=== PATIENT | male | born 1955 | race Caucasian/White ===

== ENCOUNTER 2021-04-29 15:58 | Emergency (ER) | payer OTHER ==
[2021-04-29 16:07] VITALS: TEMP 98
[2021-04-29] MEDS ORDERED: SODIUM CHLORIDE 0.9% 1,000 ML IV ONE (16:49)
[2021-04-29] MEDS ORDERED: KETOROLAC 15 MG/ML 1 ML VIAL IVP STA (16:49)
[2021-04-29] MEDS ORDERED: HYDROmorphone 1 MG/ML 1 ML SYRINGE IVP STA (16:49)
[2021-04-29] MEDS ORDERED: ONDANSETRON 4 MG/2 ML VIAL IVP STA (16:49)
[2021-04-29 17:17] LABS: Basophils # (A) 0.1 k/uL (0-0.2); Basophils % (A) 1 %; Eosinophils # (A) 0.3 k/uL (0-0.7); Eosinophils % (A) 3 %; HCT 44.5 % (39.0-53.0); HGB 15.3 gm/dL (13.0-17.5); Lymphocytes # (A) 1.4 k/uL (1.0-4.8); Lymphocytes % (A) 14 %; MCH 28.5 pg (25.0-35.0); MCHC 34.4 g/dL (31.0-37.0); MCV 83.1 fL (80.0-100.0); Mean Platelet Volume 7.6; Monocytes # (A) 0.6 k/uL (0-1.0); Monocytes % (A) 7 %; Neutrophils # (A) 7.2 k/uL (1.3-7.7); Neutrophils % (A) 74 %; Platelet Count 230 k/uL (150-450); RBC 5.35 m/uL (4.30-5.90); RDW 13.8 % (11.5-15.5); WBC 9.6 k/uL (3.8-10.6)
--- NOTE | 2021-04-29 17:32 | CT ---
EXAMINATION TYPE: CT abdomen pelvis wo con DATE OF EXAM: 04/29/2021 COMPARISON: None available HISTORY: left flank pain, hx kidney stone CT DLP: 666.8 mGycm. Automated Exposure Control for Dose Reduction was Utilized. TECHNIQUE: Multiple contiguous axial CT images of the performed from the lung bases through the pubic symphysis without the administration of intravenous contrast. 2-D sagittal and coronal reformatted i mages were obtained. FINDINGS: Dependent atelectasis otherwise the lung bases are clear. Liver, spleen, pancreas, and bilateral adrenal glands have an unremarkable unenhanced appearance. Gallbladder is absent. No definite intrahepatic or extrahepatic biliary ductal dilatation. Kidneys are symmetric in size. Mild left-sided hydroureteronephrosis with proximal left ureteral calc ulus measuring 5 mm. Mild left periureteral fat stranding proximally. Nonobstructing renal calculi bi laterally measuring up to 15 mm on the left and 8 mm on the right. Urinary bladder appears unremarkab le. Prostate is mildly enlarged. No free fluid. Visualized bowel is of normal caliber without evidence of obstruction. No significant mesenteric infl ammation. Scattered distal colonic diverticula without adjacent inflammatory changes. Appendix appear s unremarkable. No free air. Abdominal aorta is of normal caliber. No intra-abdominal or retroperitoneal lymphadenopathy. Subcutan eous soft tissues appear unremarkable. Small fat-containing umbilical hernia. Moderate multilevel deg enerative changes of the visualized thoracolumbar spine. Osseous structures appear intact. IMPRESSION: 1. 5 mm proximal left ureteral calculus with mild upstream hydroureteronephrosis and mild adjacent in flammatory changes. 2. Nephrolithiasis bilaterally. 3. Colonic diverticulosis.
[2021-04-29 17:34] LABS: Albumin 4.4 g/dL (3.5-5.0); Calcium 9.9 mg/dL (8.4-10.2); Potassium 4.2 mmol/L (3.5-5.1); Total Bilirubin 0.7 mg/dL (0.2-1.3); Total Protein 7.1 g/dL (6.3-8.2)
[2021-04-29 18:28] LABS: Appearance,Urine Clear (Clear); Bacteria,Urine Rare /hpf; Bilirubin,Urine Negative (Negative); Blood,Urine Moderate (Negative); Calcium Oxalate Crystals,Urine Occasional /hpf; Color,Urine Yellow; Glucose,Urine (UA) Negative (Negative); Ketones,Urine Negative (Negative); Leukocyte Esterase,Urine Trace (Negative); Mucus,Urine Rare /hpf; Nitrite,Urine Negative (Negative); PH, Urine 5.5 (5.0-8.0); Protein,Urine Trace (Negative); RBC,Urine 94 /hpf (0-5); Specific Gravity,Urine 1.021 (1.001-1.035); Urobilinogen,Urine <2.0 mg/dL (<2.0); WBC,Urine 3 /hpf (0-5)
--- NOTE | 2021-04-29 18:40 | ED ---
General Adult HPI - General Chief complaint: Back Pain/Injury Stated complaint: side pain Source: patient Mode of arrival: ambulatory Limitations: no limitations - History of Present Illness Initial comments: The patient is a 65-year-old male past medical history of renal stones who presents to the emergency department with reported left flank pain. He reports that he was working in the backyard when he had sudden onset of left flank pain 2 hours ago. He denies any inciting trauma. Pain felt similar to when he had a kidney stone. States that he has not passed one in over 20 years. He denies dysuria, hematuria or difficulty voiding. No changes in his bowel habits. No saddle anesthesia. No urinary retention or incontinence. No fevers or chills. He denies any numbness, tingling or weakness into his legs. Took some Motrin without any relief. No other alleviating, precipitating modifying factors - Related Data Home Medications Medication Instructions Recorded Confirmed Tamsulosin HCl [Flomax] 0.4 mg PO DAILY 04/29/21 04/29/21 Previous Rx's Medication Instructions Recorded HYDROcodone/APAP 7.5-325MG [[place] 1 tab PO Q6HR PRN 3 Days #12 tab 04/29/21 7.5-325] Ketorolac [Toradol] 10 mg PO TID #15 tab 04/29/21 Ondansetron Odt [Zofran Odt] 4 mg PO Q8HR PRN #10 tab 04/29/21 Allergies Allergy/AdvReac Type Severity Reaction Status Date / Time codeine Allergy Nausea & Verified 04/29/21 18:19 Vomiting Review of Systems ROS Statement: Those systems with pertinent positive or pertinent negative responses have been documented in the HPI. ROS Other: All systems not noted in ROS Statement are negative. Past Medical History Additional Past Medical History / Comment(s): slight hiatal hernia, kidney stones History of Any Multi-Drug Resistant Organisms: None Reported Past Surgical History: Cholecystectomy, Joint Replacement, Tonsillectomy Additional Past Surgical History / Comment(s): rt knee replacement Past Anesthesia/Blood Transfusion Reactions: No Reported Reaction Past Psychological History: No Psychological Hx Reported Smoking Status: Never smoker Past Alcohol Use History: Occasional Past Drug Use History: None Reported - Past Family History Mother Family Medical History: Cancer General Exam Limitations: no limitations Course Vital Signs 04/29/21 04/29/21 16:06 18:56 Temperature 98.0 F Pulse Rate 71 74 Respiratory 18 16 Rate Blood Pressure 155/90 146/79 O2 Sat by Pulse 98 98 Oximetry Medical Decision Making - Medical Decision Making On arrival patient was placed into room 25. A thorough history and physical was performed. IV is established the patient is given 15 mg of Toradol and 1 mg of Dilaudid. Laboratory studies are conducted and patient provided urine sample. He does go over for CT of his abdomen and pelvis. Laboratory studies demonstrate trace leukocyte esterase, 94 red blood cells, occasional calcium oxalate crystals, rare bacteria. CT of the abdomen and pelvis demonstrates a 5 mm proximal left ureteral calculus with mild upstream hydronephrosis and hydroureter. The patient is reevaluated and has had complete resolution his pain. I did discuss diagnosis, differential and treatment options. Patient will be discharged home with prescription for [place] and Toradol. I also provided the patient prescription for Zofran. He is on Flomax for enlarged prostate. Instructed to take this medication daily. Encourage fluid intake. He is given follow-up information for the urologist on-call. Instructed to call on Saturday make an appointment. If he has any worsening symptoms return to the emergency department. Patient was in agreement with this treatment and was dis charged home in stable condition - Lab Data Result diagrams: 04/29/21 17:07 04/29/21 17:07 Lab Results 04/29/21 04/29/21 04/29/21 Range/Units 17:07 17:07 17:07 WBC 9.6 (3.8-10.6) k/uL RBC 5.35 (4.30-5.90) m/uL Hgb 15.3 (13.0-17.5) gm/dL Hct 44.5 (39.0-53.0) % MCV 83.1 (80.0-100.0) fL MCH 28.5 (25.0-35.0) pg MCHC 34.4 (31.0-37.0) g/dL RDW 13.8 (11.5-15.5) % Plt Count 230 (150-450) k/uL MPV 7.6 Neutrophils % 74 % Lymphocytes % 14 % Monocytes % 7 % Eosinophils % 3 % Basophils % 1 % Neutrophils # 7.2 (1.3-7.7) k/uL Lymphocytes # 1.4 (1.0-4.8) k/uL Monocytes # 0.6 (0-1.0) k/uL Eosinophils # 0.3 (0-0.7) k/uL Basophils # 0.1 (0-0.2) k/uL Sodium 135 L (137-145) mmol/L Potassium 4.2 (3.5-5.1) mmol/L Chloride 104 (98-107) mmol/L Carbon Dioxide 23 (22-30) mmol/L Anion Gap 8 mmol/L BUN 18 (9-20) mg/dL Creatinine 1.18 (0.66-1.25) mg/dL Est GFR (CKD-EPI)AfAm 76 (>60 ml/min/1.73 sqM) Est GFR (CKD-EPI)NonAf 65 (>60 ml/min/1.73 sqM) Glucose 147 H (74-99) mg/dL Calcium 9.9 (8.4-10.2) mg/dL Total Bilirubin 0.7 (0.2-1.3) mg/dL AST 30 (17-59) U/L ALT 29 (4-49) U/L Alkaline Phosphatase 57 (38-126) U/L Total Protein 7.1 (6.3-8.2) g/dL Albumin 4.4 (3.5-5.0) g/dL Lipase 98 (23-300) U/L Urine Color Yellow Urine Appearance Clear (Clear) Urine pH 5.5 (5.0-8.0) Ur Specific [place] 1.021 (1.001-1.035) Urine Protein Trace H (Negative) Urine Glucose (UA) Negative (Negative) Urine Ketones Negative (Negative) Urine Blood Moderate H (Negative) Urine Nitrite Negative (Negative) Urine Bilirubin Negative (Negative) Urine Urobilinogen <2.0 (<2.0) mg/dL Ur Leukocyte Esterase Trace H (Negative) Urine RBC 94 H (0-5) /hpf Urine WBC 3 (0-5) /hpf Calcium Oxalate [place] Occasional H (None) /hpf Urine Bacteria Rare H (None) /hpf Urine Mucus Rare H (None) /hpf Disposition Clinical Impression: Ureteral stone, Hydronephrosis Disposition: HOME SELF-CARE Condition: Stable Instructions (If sedation given, give patient instructions): Kidney Stones (ED) Additional Instructions: Alternate taking the [place] and Toradol for pain control. Take your Flomax as directed. Strain all urine. Return to the emergency room for any new or worsening symptoms include inability to urinate, uncontrolled pain and fever. Follow up with the urologist for further management of your kidney stones. Prescriptions: HYDROcodone/APAP 7.5-325MG [[place] 7.5-325] 1 tab PO Q6HR PRN 3 Days #12 tab PRN Reason: Pain Ketorolac [Toradol] 10 mg PO TID #15 tab Ondansetron Odt [Zofran Odt] 4 mg PO Q8HR PRN #10 tab PRN Reason: Nausea Is patient prescribed a controlled substance at d/c from ED?: Yes When asked, does pt state using other controlled substances?: No If prescribed controlled substance>3 days was MAPS reviewed?: Prescribed <3 Days If opioid is for acute pain is fill amount 7 days or less?: Yes If Rx opioid, was Start Talking consent form obtained?: Yes Referrals: Jesus Romo III, MD [Primary Care Provider] - 1-2 days Chavez Marc MD [STAFF PHYSICIAN] - 1-2 days Time of Disposition: 18:35
[2021-04-29 18:58] VITALS: BP 146/79; PULSE 74; RESP 16
== END 2021-04-29 18:57 | disposition home or self-care (01) ==
LOC: EC 15:58
DX: N13.2 Hydronephrosis with renal and ureteral calculous obstruction (principal); Z88.5 Allergy status to narcotic agent
CPT/HCPCS: 36415; 80053; 83690; 85025; 81001; 74176; 96374; 96375 ×2; 96361 ×2; 99284; J2405; J1170; J1885

== ENCOUNTER 2021-05-25 07:24 | Day surgery (SDC) | payer OTHER ==
[2021-05-24 08:26] VITALS: BMI 25.8
[~2021-05-25 07:24] MED LIST: DEXAMETHASONE SOD PHOSPHATE 4 MG/ML 1 ML VIAL IV ONE; LACTATED RINGERS 1,000 ML IV SCH; ONDANSETRON 4 MG/2 ML VIAL IVP ONE; fentaNYL (PF) 50 MCG/ML 2 ML AMP IV PRN
--- NOTE | 2021-05-25 07:41 | XR ---
EXAMINATION TYPE: XR KUB DATE OF EXAM: 05/25/2021 Comparison: CT 04/29/2021 Clinical History: 65-year-old male preoperative left-sided kidney stone. Findings: 6 mm right renal calculus. A more right paramedian mid abdominal calcification measuring 5 mm could r epresent summation artifact with the L3 transverse process. Correlate for any new right-sided symptom s. Clustered calculi lower pole left kidney measuring up to 1.8 cm. 5 mm calculus upper pole left kidney . There is calcification on left side of the pelvis that may reflect a left ureteral stone that has pro gressed compared to 04/29/2021. Further correlation for any active left-sided symptoms is needed. Phlebolith in the right side of the pelvis. Impression: 1. Bilateral nephrolithiasis, left greater than right measuring up to 1.8 cm. 2. 5 mm summation artifact versus calculus right mid abdomen. Correlate for any new right-sided sympt oms. 3. 6 mm calcification left side of the pelvis could represent a phlebolith or a left ureteral calculu s that has progressed compared to 04/29/2021.
--- NOTE | 2021-05-25 08:42 | P.HPIHPCON ---
History of Present Illness H&P Date: 05/25/21 Chief Complaint: Left-sided flank pain This is 65-year-old male with history of a 6 mm left-sided renal stone, and multiple nonobstructive renal stones. He is symptomatic from his stone. Discussed with him the option of ureteroscopy, discussed with him the risk which includes but not limited to bleeding, infection, injury to the ureter. Discussed risk from anesthesia. Discussed with him the lower pole stones may be difficult to remove given the location, but will attempt to remove it. He understood all the risk and agreed to proceed with left-sided ureteroscopy, with holmium laser lithotripsy, stone basketing and stent insertion Consent for Procedure: I have explained the operation/procedure to the patient, including the risks, benefits, side effects, alternative therapies (including not receiving the proposed treatment or service), the likelihood of the patient achieving his/her goals, and potential recuperation problems for the procedure/sedation/analgesia, as well as any blood products, if indicated. I also explained to the patient the risks, benefits and side effects of the alternatives, as well as the risks related to not receiving the proposed procedure, care, treatment, or services. - Constitutional Constitutional: Denies chills, Denies fever - Cardiovascular Cardiovascular: Denies chest pain, Denies shortness of breath - Respiratory Respiratory: Denies cough, Denies 7 - Gastrointestinal Gastrointestinal: Denies abdominal pain, Denies diarrhea, Denies nausea, Denies vomiting Past Medical History Past Medical History: GERD/Reflux Additional Past Medical History / Comment(s): kidney stones, History of Any Multi-Drug Resistant Organisms: None Reported Past Surgical History: Cholecystectomy, Joint Replacement, Tonsillectomy Additional Past Surgical History / Comment(s): rt knee replacement, lithotripsy Past Anesthesia/Blood Transfusion Reactions: Postoperative Nausea & Vomiting (PONV) Smoking Status: Never smoker - Past Family History Mother Family Medical History: Cancer Medications and Allergies Home Medications Medication Instructions Recorded Confirmed Type HYDROcodone/APAP 7.5-325MG [[place] 1 tab PO Q6HR PRN 3 Days #12 tab 04/29/21 1 Rx 7.5-325] Ondansetron Odt [Zofran Odt] 4 mg PO Q8HR PRN #10 tab 04/29/21 05/24/21 Rx Tamsulosin HCl [Flomax] 0.4 mg PO DAILY 04/29/21 05/24/21 History Multivitamins, Thera [Multivitamin 1 tab PO DAILY 05/24/21 05/24/21 History (formulary)] Naproxen Sodium [Aleve] 220 mg PO DAILY 05/24/21 05/24/21 History Allergies Allergy/AdvReac Type Severity Reaction Status Date / Time codeine Allergy Nausea & Verified 05/25/21 07:48 Vomiting Surgical - Exam Vital Signs Temp Pulse Resp BP Pulse Ox 97.3 F L 68 16 131/91 95 05/25/21 07:47 05/25/21 07:47 05/25/21 07:47 05/25/21 07:47 05/25/21 07:47 - General no distress, moderate pain - Eyes PERRL, normal ocular movement - ENT normal nares, normal mucosa - Respiratory normal expansion, normal respiratory effort - Abdomen Abdomen: soft, non tender - Psychiatric oriented to time, oriented to person, oriented to place Assessment and Plan Assessment: 65-year-old male with history of a 6 mm left-sided ureteral stone, left sided renal stones -Or for left-sided ureteroscopy, holmium laser lithotripsy, stone basketing and stent insertion
[2021-05-25] MEDS ORDERED: NEOSTIGMINE 1 MG/ML 10 ML VIAL ONE (08:57)
[2021-05-25] MEDS ORDERED: SUCCINYLCHOLINE CHLORIDE 100 MG/5 ML SYR IV ONE (08:57)
[2021-05-25] MEDS ORDERED: fentaNYL (PF) 50 MCG/ML 2 ML AMP ONE (08:57)
[2021-05-25] MEDS ORDERED: PROPOFOL 10 MG/ML 20 ML VIAL IV ONE (08:57)
[2021-05-25] MEDS ORDERED: GLYCOPYRROLATE 0.2 MG/ML 2 ML VIAL ONE (08:57)
[2021-05-25] MEDS ORDERED: MIDAZOLAM 2 MG/2 ML VIAL ONE (08:57)
[2021-05-25] MEDS ORDERED: ROCURONIUM 10 MG/ML (5 ML VIAL) IV ONE (08:57)
[2021-05-25] MEDS ORDERED: IOPAMIDOL-370 50ML BTL IRRIGATION ONE (09:26)
[2021-05-25] MEDS ORDERED: LACTATED RINGERS 1,000 ML IV ONE (10:16)
--- NOTE | 2021-05-25 11:01 | P.OP ---
Date of Procedure: 05/25/21 Preoperative Diagnosis: Left-sided renal, ureteral stone Postoperative Diagnosis: Same Procedure(s) Performed: Cystoscopy, left ureteroscopy, holmium laser lithotripsy, stone basketing, incision of a calyceal diverticulum, and stent placement Implants: 6-[place] by 26 cm stent in the left ureter, left on a string Anesthesia: PATRICK Surgeon: Jose Luis Lynne Estimated Blood Loss (ml): 5 Pathology: other (Left renal, ureteral stone) Condition: stable Disposition: PACU Indications for Procedure: This is 65-year-old male with history of a 6 mm left-sided renal stone, and multiple nonobstructive renal stones. He is symptomatic from his stone. Discussed with him the option of ureteroscopy, discussed with him the risk which includes but not limited to bleeding, infection, injury to the ureter. Discussed risk from anesthesia. Discussed with him the lower pole stones may be difficult to remove given the location, but will attempt to remove it. He understood all the risk and agreed to proceed with left-sided ureteroscopy, with holmium laser lithotripsy, stone basketing and stent insertion Operative Findings: Large stone in the left distal ureter, additional stone in the upper pole on the left. Multiple's stones within a left lower pole calyceal diverticulum Description of Procedure: Patient was brought to the operating room, general anesthesia was induced. He was prepped and draped in sterile fashion and placed in dorsal lithotomy position. Cystoscopy fitted with 21-[place] sheath was inserted per urethra, cystoscopy was performed which showed no abnormality within the bladder. Of no te he had a bilateral obstructive lateral lobes. At this time a sensor wire was advanced through the scope and up the left ureteral orifice. The cystoscope was withdrawn with wire in place. Next a semirigid ureteroscope was inserted per urethra and advanced up the left ureteral orifice, stone was encountered in the distal ureter. Using the holmium laser the stone was fragmented into small frag ments, sizable fragments were removed using the stone basket. At this time the ureteroscope was advanced into the mid ureter which showed no additional stones or sizable fragments. Pullback ureteroscopy was performed which showed no injury to the ureter or any sizable fragments. Next a 1214 [place] access sheath was passed over the wire into the proximal ureter. Next a flexible ureteroscope was inserted through the access sheath, renoscopy was performed which showed a large stone in the upper pole. Stone was fragmented using the holmium laser, sizable fragments were removed using the stone basket. Additionally there was radiopaque densities within the lower pole, on renoscopy there appeared to be within a calyceal diverticulum. Using the holmium laser the calyceal diverticulum was incised. Attention was then carried to the stones within the diverticulum. Using the holmium laser the stone was fragmented into small fragments, sizable fragments were removed. Of note some of the stones were in the lowermost portion of the diverticulum, and I was not able to access it using the ureteroscope, but more than 80% of the stone was fragmented. Repeat renoscopy showed no additional stones within the kidney outside the lower pole stones. Pullback ureteroscopy was performed showed no injury to the kidney or any ureteral fragments. As ureteroscope was withdrawn and a sensor wire was advanced through. Next a ureteral stent was passed over the wire, the proximal curl was visualized on fluoroscopy and the distal curl was visualized using the cystoscope. The stent was left on a string and taped to the patient penis. Patient tolerated the procedure well was taken to PACU in stable condition
[2021-05-25 11:08] VITALS: TEMP 97.5
--- NOTE | 2021-05-25 11:43 | FL ---
EXAMINATION TYPE: FL urography retrograde DATE OF EXAM: 05/25/2021 COMPARISON: NONE HISTORY: Fluoroscopy time. Fluoroscopy was provided to the referring clinician.
[2021-05-25] MEDS ORDERED: KETOROLAC 15 MG/ML 1 ML VIAL ONE (12:01)
[2021-05-25] MEDS ORDERED: HYDROcodone/APAP 5-325MG 1 EACH TAB ONE (12:04)
[2021-05-25] MEDS ORDERED: HYDROcodone/APAP 5-325MG 1 EACH TAB PO ONE (12:09)
[2021-05-25 12:21] VITALS: BP 147/94; PULSE 77; RESP 16
== END 2021-05-25 12:39 | disposition home or self-care (01) ==
LOC: OR 07:24
PROVIDERS: ATTEND Urology
DX: N20.2 Calculus of kidney with calculus of ureter (principal); N28.89 Other specified disorders of kidney and ureter; K21.9 Gastro-esophageal reflux disease without esophagitis; Z90.49 Acquired absence of other specified parts of digestive tract; Z96.651 Presence of right artificial knee joint; Z87.442 Personal history of urinary calculi; Z98.890 Other specified postprocedural states; Z79.1 Long term (current) use of non-steroidal anti-inflammatories (NSAID); Z79.899 Other long term (current) drug therapy; Z88.5 Allergy status to narcotic agent
CPT/HCPCS: 82365; 74420; 74018; 52356; C1894; C1769; J2250; J1100; J2710; J0690; J2405; J3010; J0330; J2704; Q9967

== ENCOUNTER → 2021-06-22 | Outpatient (CLI) | payer OTHER ==
--- NOTE | 2021-06-22 09:36 | XR ---
EXAMINATION TYPE: XR KUB DATE OF EXAM: 06/22/2021 COMPARISON: 05/25/2021 HISTORY: Post lithotripsy TECHNIQUE: One view abdominal series FINDINGS: The osseous structures are intact. The bowel gas pattern is nonspecific. Calcification the right hem ipelvis stable likely vascular. Left hemipelvic calcification no longer seen. Right kidney: There is now one 6 mm calcification in the mid right kidney. Stable from prior exam. There is a 3 mm upper and mid pole calculus on the left. Previously measured 5 mm. Lower pole calcifi cation demonstrates reduction in size and fragmentation now measuring a maximal dimension of 1 cm pre viously measuring 1.8 cm. Arthropathy of the hips and postsurgical change right upper quadrant. IMPRESSION: Bilateral nephrolithiasis
== END | disposition home or self-care (01) ==
LOC: RADXRMAIN 09:12
PROVIDERS: ATTEND Urology
DX: N20.0 Calculus of kidney (principal)
CPT/HCPCS: 74018

== ENCOUNTER → 2024-08-28 | Outpatient (CLI) | payer MEDICARE ==
--- NOTE | 2024-08-28 11:22 | US ---
EXAMINATION TYPE: US abdomen limited DATE OF EXAM: 08/28/2024 COMPARISON: NONE CLINICAL INDICATION: Male, 69 years old with history of R10.84 ABD PAIN; Jaundice TECHNIQUE: Grayscale and color Doppler imaging of the right upper quadrant was performed. FINDINGS: EXAM MEASUREMENTS: Liver Length: 16.9 cm Gallbladder: Surgically absent CBD: 1.7 cm Right Kidney: 13.4 x 5.4 x 3.7 cm Pancreas: Obscured by bowel gas Liver: Intrahepatic dilation visualized. Increased echogenicity suggesting fatty infiltration. Gallbladder: Surgically absent Evidence for sonographic Gonzales's sign: No CBD: Dilated Right Kidney: 1.2 x .7 cm stone visualized. No hydronephrosis. IMPRESSION: 1. Prominent intrahepatic and extrahepatic biliary ductal dilatation. The bile duct measures up to 1. 7 cm. Correlate with alkaline phosphatase and bilirubin levels to exclude biliary obstruction. The pa ncreas was obscured by bowel gas and not assessed. 2. Gallbladder surgically absent. 3. At least moderate hepatic steatosis. 4. Nonobstructive 1.2 cm right renal stone. [facility], Workstation: JOSE ANGELSmash BucketMYA, 08/28/2024 11:19 AM
== END | disposition home or self-care (01) ==
LOC: RADUSWWP 08:18
PROVIDERS: ATTEND Internal Medicine
DX: N20.0 Calculus of kidney (principal); K76.0 Fatty (change of) liver, not elsewhere classified; K83.8 Other specified diseases of biliary tract
CPT/HCPCS: 76705